=== PATIENT | female | born 1990 ===

== ENCOUNTER 2022-07-01 17:11 | Inpatient (IN) | payer BC, SELFPAY ==
[2022-07-01] VITALS (11 sets, daily range): BP systolic 95–109; BP diastolic 54–64; PULSE 81–125; RESP 12–25; TEMP 36.8–37.9; O2SAT 95–98; BMI 27.2
--- NOTE | 2022-07-01 | DI.RAD.S_ITS ---
PROCEDURE: XR ABDOMEN 1V INDICATIONS: RIGHT STENT PLACEMENT TECHNIQUE: 3 intra-operative images acquired by the Urology service. COMPARISON: None. FINDINGS: Imaging utilized during placement of a right ureteral stent. IMPRESSION: Imaging utilized during placement of a right ureteral stone. Dictated by: Michael Hamlin M.D. on 07/01/2022 at 19:53 Approved by: Michael Hamlin M.D. on 07/01/2022 at 19:54
[2022-07-01] MEDS: LACTATED RINGERS 1,000 ML 42 ML IV ×2 (17:57→19:31)
--- NOTE | 2022-07-01 18:25 | DI.RAD.S_ITS ---
PROCEDURE: XR KUB INDICATIONS: right ureteral stone TECHNIQUE: One view of the abdomen acquired. COMPARISON: [facility], CT, CT ABDOMEN PELVIS WITHOUT CONTRAST, 07/01/2022, 11:01. FINDINGS: Surgical changes and devices: None. Bowel: Bowel gas pattern is normal. Moderately large fecal debris. Soft tissues: The distal right ureteral stone is visualized, above the level of the right acetabulum, measuring approximately 5 x 6 mm. Visualized solid organ contours appear normal in size. Bones: No suspicious bony lesions. IMPRESSION: Distal right ureteral stone measuring approximately 5 x 6 mm. Dictated by: Michael Hamlin M.D. on 07/01/2022 at 18:46 Approved by: Michael Hamlin M.D. on 07/01/2022 at 18:48
--- NOTE | 2022-07-01 18:28 | PM.PREOP ---
Pre-operative Note COVID-19 Criteria for continued procedure: Expected advancement of disease process, Possibility delay results in more complex future surgery or treatment, Continuing or worsening of significant or severe pain, Deterioration of the patient's condition or overall health, Delay expected to result in less-positive ultimate med/surg outcome and Non-surgical alternatives not available or appropriate per current SOC Interval Note History & Physical reviewed/Exam performed by Physician: Yes Changes to H&P: No
--- NOTE | 2022-07-01 18:29 | P.CONS_ITS ---
History of Present Illness Consult details Date Patient Seen: 07/01/22 Time Patient Seen: 18:10 Chief complaint: ABD pain, right kidney ston, possible sepsis Reason for consult: Obstructing 6 mm right ureteral calculus. Requesting provider: Alexi Kinney Narrative: The patient is a 31-year-old para 2 female is experiencing her usual health until the very early hours of this day when experienced nausea, felt febrile, and had onset of acute severe right-sided flank and abdominal pain. She presented to [facility] for evaluation. Initial white blood cell count was 10.5. Urinalysis was nitrite positive and was positive for leukocytes and bacteria. She is not demonstrated any hypotension but blood pressure upon presentation at [facility] is 100/55, pulse 110. Has remained tachycardic at approximately 110 and is febrile, currently 100.2F. She received 1 g of Rocephin earlier today at [facility]. CT KUB identified moderate right hydronephrosis with right perinephric stranding secondary to an obstructing 6 mm right distal ureteral calculus. Hospitalist service at [facility] was contacted for request for transfer due to lack of urologic service providers at [facility], and no bed availability at [facility]. Transfer acceptance has been coordinated. She provides history of having ?frequent UTIs?. Denies previous stone history. Meds Home Medications and Allergies Allergies Allergy/AdvReac Type Severity Reaction Status Date / Time No Known Drug Allergies Allergy Verified 07/01/22 18:12 Review of Systems Review of Systems ROS: Yes All systems reviewed with the patient and are negative except as otherwise documented Exam Vital Signs (past 8 hours): - 07/01/22 17:58 07/01/22 18:15 Temperature 100.2 F H Pulse Rate 111 H 109 H Respiratory Rate 19 20 Blood Pressure 95/61 100/55 L Pulse Oximetry 97 96 Oxygen Delivery Method Room Air Room Air Oxygen Delivery Method Room Air Narrative Exam Narrative: She is a well-developed, well-nourished female in mild distress secondary to right lower quadrant ?cramping? Head/neck sclera clear and pupils are round and equal bilaterally. Chest-equal, and unlabored expansion bilaterally. Heart-normal sinus rhythm. PFSH Social History household members: spouse Assessment & Plan Assessment & Plan narrative: Assessment: 1. Obstructing 6 mm right distal ureteral calculus. 2. UTI/urosepsis. Plan: 1. Discussion and informed consent obtained this evening for urgent cystoscopy and placement of right ureteral stent for internal urinary diversion. 2. Patient will be admitted to the hospitalist service for postoperative observation of clinical course and hemodynamic stability. Time Spent With Patient Critical Care time: I spent a total of [] minutes of critical care time on this patient's care today; this time is exclusive of procedural time.
[2022-07-01] MEDS: CIPROFLOXACIN 400 MG/200 ML PIGGYBACK 200 MG IV (18:46)
--- NOTE | 2022-07-01 19:00 | SUR.OPER ---
Lithotomy on padded OR bed, head on pillow, arms secured on padded arm boards at <90 degrees abduction. Legs secured in padded yellow fins stirrups.
--- NOTE | 2022-07-01 19:33 | PM.OP.1 ---
Operative Date/Time/Diagnoses Date of procedure: 07/01/22 Time of procedure: 19:20 Pre-op diagnosis: 1. Obstructing 6 mm right distal ureteral calculus. 2. UTI/right pyelonephritis. 3. Urosepsis. Post-op diagnosis: same Procedure & Clinicians Procedure: 1. Cystoscopy/right distal ureteral stone manipulation without removal. 2. Cystoscopy/placement right ureteral stent (6 Surinamese by 22-32 cm multi-length). Same procedure as scheduled: Yes Indications: 1. Obstructing 6 mm right distal ureteral calculus. 2. UTI/right pyelonephritis. 3. Urosepsis. Surgeon: Radha James Click Yes if Unassisted: Yes Anesthesia Type: General Operative Notes Findings: 1. Urethra-normal caliber without lesion or obstruction. 2. Bladder-normal ureteral orifices. Grade 2 +cystocele. 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 Normal position of ureteral orifices bilaterally other than malpositioned due to cystocele. 3. Right ureter-the stone is radiopaque and was seen in the same position as that on preoperative imaging. It was highly impacted at the site. Positioning of the stent was very difficult due to high-grade impaction. Following passage of the ureteral guidewire, and then positioning of the ureteral stent there was impressive purulent obstructive efflux. Intraoperative images were taken. Closure Type: not applicable Specimen(s): none sent Applied: other (Six Surinamese by 22-32 cm multi-length stent.) Estimated Blood Loss (mL): 0 Blood products transfused: none Procedure in detail: The patient was positioned supine and was administered general anesthesia. She was then repositioned in semi lithotomy and the lower abdomen, genitalia, and groin were then prepped and draped in sterile fashion. The 22 Surinamese panendoscope was then passed the lower urinary tract with the findings as described above. A 0.35 hybrid guidewire was then selected and advanced into the right collecting system under direct and fluoroscopic guidance with the endoscopic findings as described above. Next, a 6 Surinamese by 22-32 cm multi-length stent was advanced over the hybrid guidewire, again under direct and fluoroscopic guidance. Advancement of the stent proximally was extremely difficult due to the high-grade impaction of the stone. The stent was eventually positioned satisfactorily. NO RETRIEVAL LINE WAS LEFT ATTACHED. The bladder was then drained completely and all instrumentation was removed. The patient was then repositioned supine, was awakened, and then was transferred to a gurney awake and in stable condition. Complications: none Post-operative Condition: stable Disposition: PACU Plan for aftercare: Admit to acute care-hospitalist service.
[2022-07-01] MEDS: ACETAMINOPHEN 325 MG TABLET 650 MG PO (19:45)
[2022-07-01] MEDS: SODIUM CHLORIDE 0.9% 1,000 ML 125 ML IV (21:00)
[2022-07-01] MEDS: PIPERACILLIN/TAZO 4.5 GM in SODIUM CHLORIDE 0.9% 100 ML IV (21:18)
--- NOTE | 2022-07-01 22:01 | P.HP_ITS ---
History of Present Illness History of Present Illness Date Patient Seen: 07/01/22 Time Patient Seen: 18:25 Chief complaint: ABD pain, right kidney ston, possible sepsis Narrative: Nasreen Parker is a 31-year-old female with a history of chronic UTIs, takes no regular medications and no other medical history who woke up yesterday morning with right flank pain and right upper quadrant abdominal pain nausea body aches and chills and felt feverish. Per Dr. James:She presented to [facility] for evaluation.? Initial white blood cell count was 10.5.? Urinalysis was nitrite positive and was positive for leukocytes and bacteria.? She is not demonstrated any hypotension but blood pressure upon presentation at [facility] is 100/55, pulse 110.? Has remained tachycardic at approximately 110 and is? febrile, currently 100.2F.? She received 1 g of Rocephin earlier today at [facility].? CT KUB identified moderate right hydronephrosis with right perinephric stranding secondary to an obstructing 6 mm right distal ureteral calculus.Hospitalist service at [facility] was contacted for request for transfer due to lack of urologic service providers at [facility], and no bed availability at [facility].? Transfer acceptanced by hospitalist service. 07/01/20221919 Dr. James urologist took the patient to the OR for UTI, pyelonephritis, urosepsis, for cystoscopy and right ureteral stent placement. Hospitalist admit exam was completed after the patient returned to the floor post surgery. The patient states that she has continued mild right lower quadrant ache and right flank ache 1/10 no nausea mild headache, she has been up and emptied her bladder, complains of dysuria, urgency and frequency symptoms. Denies any hematuria, suprapubic pain, nausea, vomiting, chest pain, shortness of breath, fever, body aches, or chills, positive decreased appetite, last bowel movement was 4 days ago, denies blood in her stool, feels constipated, patient denies any history of kidney stones. Takes no regular medications, no other medical history, denies any recent illness, injury, or trauma. Patient's vital signs postoperatively temp 100.2?, BP 95/56, HR 103, R 25, O2 saturation 97% on room air.. Upon admit exam patient is afebrile temp 98.9?, BP 109/62, HR 97 RR 22, O2 saturation 96% on room air patient is resting comfortably in no distress at this time. Patient admitted for hospitalist management for postoperative UTI, pyelonephritis, and urosepsis. Patient History Medical History Chronic lower urinary tract infection Family & Social History Family History Mother Cancer Father Diabetes mellitus Social History: household members spouse, patient has 2 children and is a worker for [employer]. Prior Living Arrangements House Tobacco & Substance use: Smoking Status patient smoked for approximately 5 years and quit 10 years ago. alcohol intake current alcohol intake frequency a few times a week Substance Use Type does not use Meds Home Medications and Allergies Home Medications Medication Instructions Recorded Confirmed Type No Known Home Medications 07/01/22 07/01/22 History Allergies Allergy/AdvReac Type Severity Reaction Status Date / Time No Known Drug Allergies Allergy Verified 07/01/22 18:12 Review of Systems Review of Systems Narrative: All 12 point systems reviewed with the patient and are negative except otherwise documented. Exam Vital Signs (past 8 hours): - 07/01/22 17:58 07/01/22 18:15 07/01/22 19:23 Temperature 100.2 F H 100.2 F H Pulse Rate 111 H 109 H 125 H Respiratory Rate 19 20 23 Blood Pressure 95/61 100/55 L 107/61 Pulse Oximetry 97 96 98 Oxygen Delivery Method Room Air Room Air Room Air Oxygen Flow Rate 07/01/22 19:27 07/01/22 19:32 07/01/22 19:42 Temperature Pulse Rate 108 H 103 H 99 H Respiratory Rate 24 25 H 24 Blood Pressure 96/55 L 95/56 L 106/62 Pulse Oximetry 98 97 95 Oxygen Delivery Method Room Air Room Air Room Air Oxygen Flow Rate 07/01/22 19:45 07/01/22 19:47 07/01/22 19:52 Temperature 100.2 F H Pulse Rate 94 H 95 H Respiratory Rate 22 21 Blood Pressure 107/59 L 104/64 Pulse Oximetry 95 96 Oxygen Delivery Method Room Air Room Air Oxygen Flow Rate 07/01/22 20:14 Temperature 98.9 F Pulse Rate 97 H Respiratory Rate 22 Blood Pressure 109/62 Pulse Oximetry 96 Oxygen Delivery Method Oxygen Flow Rate 0 Oxygen Delivery Method Room Air Oxygen Flow Rate 0 Narrative Exam Narrative: General: Patient is a well-developed, well-nourished female in no distress at this time. HEENT: Normocephalic, atraumatic, extraocular muscles intact, oral pharynx is clear and mucous membranes are moist. Neck is supple and symmetric, trachea is midline, no adenopathy, no thyroid enlargement, nontender, no masses palpated. Negative for JVD Chest: Normal AP diameter and contour without kyphoscoliosis, no nasal flaring, retractions, or tachypneic labored Lungs: Auscultation of all lung silver are clear without adventitious sounds, wheezes, rhonchi, or rales. Cardio: S1 & S2 with regular rate and rhythm without murmur, rubs, or gallops, no carotid bruit, no cardiac pulsations present. Abdomen: Soft mild right quad diffuse tenderness s/p, Bowel sounds are absent in all 4 quadrants without guarding or rebound, positive right mild CVA tenderness. Musculoskeletal: Muscle strength and tone are equal within normal limits, no deformity, crepitus, effusions, cyanosis, clubbing or edema present. Full range of motion intact radial and pedal pulses are normal. Skin: Warm dry and intact without rashes, ulcerations or petechiae. Neuro: Alert and orientated x3, strength is +5/5 in all extremities, sensation to touch intact, no gross deficits noted of cranial nerves. Psych: Patient has a well-kept appearance, appropriate affect, mental status attitude thought context and judgment are appropriate for age. Assessment & Plan Assessment & Plan narrative: Nasreen Parker is a 31-year-old female only a history of chronic UTIs who was transferred from [facility] to [facility] to undergo cystoscopy with right ureteral stent placement by Dr. James urology after developing a UTI pyelonephritis urosepsis due to an obstructing 6 mm right distal ureteral calculus. Patient required admittance and medical management status post due to the serous risk of significant deterioration within the next 24 hours. 1. Right ureteral calculus, obstructing, with moderate right hydronephrosis, acute, present on admission- Resolved - Status Post OP -managed by Dr. James cystoscopy with right ureteral stent placement 07/01/2022 2. Sepsis (Urosepsis), secondary to UTI/pyelonephritis as a result of obstructing renal calculi, acute, present on admission-resolving -initial presenting vitals temp 100.2?, BP 95/56, HR 110, RR 25, WBC 10.5, urinalysis positive for nitrates, leukocytes and bacteria.-Per Dr. James's H&P documentation -patient has stabilized: Patient is afebrile, tachycardia and tachypnea resolved. -ordered stat CMP and CBC -blood cultures ordered, unclear if patient's urine was cultured at [place], ordered urine culture-will have am RN retrieve records from [place] in [place]. -Given 1 gram Rocephin at [facility] -For coverage of Gram-negative, Enterococcus, and Staphylococcus changed patient to Zosyn q.8 hours -NS at 125 cc HR- rehydration -Monitor for decompensation, septic shock -orthostatics q.4 hours while awake -advance diet to regular as tolerated -antiemetics and pain management -Dr. James noted a possible Candidiasis infection observed during surgical procedure- Ordered fluconazole 150 mg p.o. daily for coverage. -Patient will need to be discharged home on 3 weeks oral antibiotics Cipro 500mg. -I also recommend that she have a script for 2 doses of fluconazole 150 mg-to be initiated at the completion of oral antibiotics. Code status:Full Surrogate decision maker: Arturo Parker Spouse COVID PCR:Negative DVT/VTE prophylaxis:Lovenox held due to surgery, SCD's only Disposition: Patient is admitted under inpatient status as she required surgical intervention which could only be provided within the hospital setting, and the patient need to be monitored postoperatively as she is at risk of serious significant deterioration within 24 hours of surgery due to sepsis. I have utilized all available immediate resources to obtain, update, or review the patient's current medications. I confirmed that the patient's advanced care plan is present, Code status is documented and/or surrogate decision maker is listed in the patient's medical record. Time Spent With Patient Critical Care time: I spent a total of [] minutes of critical care time on this patient's care today; this time is exclusive of procedural time.
[2022-07-01] MEDS: SENNOSIDES 8.6 MG TABLET PO (22:49)
[2022-07-01] MEDS: KETOROLAC 30 MG/ML VIAL IV (22:49)
[2022-07-02] VITALS (7 sets, daily range): BP systolic 97–117; BP diastolic 54–70; PULSE 64–78; RESP 12–16; TEMP 36.5–37; O2SAT 96–97
[2022-07-02] MEDS: PIPERACILLIN/TAZO 3.375 GM in SODIUM CHLORIDE 0.9% 100 ML IV ×2 (01:20→08:51)
[2022-07-02] MEDS: KETOROLAC 30 MG/ML VIAL IV ×2 (05:12→11:32)
[2022-07-02 05:58] LABS: Add Manual Diff / Slide Review NO; Basophils Absolute Auto 0 /uL (0-100); Basophils Percent Auto 0.1 % (0-2); Eosinophils Absolute Auto 0 /uL (0-450); Eosinophils Percent Auto 0.1 % (2-4); Hematocrit 31.4 % (36-46); Hemoglobin 10.5 g/dL (12.0-16.0); Lymphocytes Absolute Auto 1200 /uL (1100-4500); Lymphocytes Percent Auto 4.8 % (25-40); Mean Corpuscular HGB Conc 33.3 % (30-36); Mean Corpuscular Hemoglobin 29.8 PG (26-34); Mean Corpuscular Volume 89.5 fL (80-100); Monocytes Absolute Auto 1400 /uL (0-900); Monocytes Percent Auto 5.9 % (3-14); Neutrophils Absolute Auto 21700 /uL (1500-7000); Neutrophils Percent Auto 89.1 % (50-75); Platelet Count 134 X10^3/uL (150-400); Red Blood Cell Count 3.51 X10^6/uL (4.0-5.2); Red Cell Distribution Width 12.2 % (11.6-14.8); White Blood Cell Count 24.3 X10^3/uL (4.5-11.0)
[2022-07-02 06:26] LABS: Alanine Aminotransferase 15 IU/L (<35); Albumin 3.4 g/dL (3.5-5.0); Albumin Globulin Ratio 1.2 (1.0-2.8); Alkaline Phosphatase 58 U/L (38-126); Aspartate Aminotransferase 27 IU/L (14-36); BUN Creatinine Ratio 18.1 (6-22); Bilirubin Total 0.5 mg/dL (0.2-1.3); Blood Urea Nitrogen 13 mg/dL (7-17); Calcium 8.6 mg/dL (8.4-10.2); Carbon Dioxide 23 mmol/L (22-32); Chloride 108 mmol/L (98-107); Estimated Glomerular Filt Rate > 60 mL/min (>60); Globulin 2.8 g/dL (1.7-4.1); Glucose 143 mg/dL (70-100); HEMOLYSIS < 15 (0-50); Potassium 3.9 mmol/L (3.4-5.1); Sodium 137 mmol/L (137-145); Total Protein 6.2 g/dL (6.3-8.2)
--- NOTE | 2022-07-02 07:56 | P.PN_ITS ---
Exam Vital Signs (past 8 hours): - 07/02/22 00:00 07/02/22 01:05 07/02/22 05:42 Temperature 98.6 F 98.6 F 98.5 F Pulse Rate 77 78 64 Respiratory Rate 16 12 12 Blood Pressure 101/56 L 102/54 L 97/55 L Pulse Oximetry 96 96 96 Oxygen Flow Rate 0 0 0 Oxygen Delivery Method Room Air Oxygen Flow Rate 0 Narrative Exam Narrative: General: Patient is a well-developed, well-nourished female in no distress at this time. HEENT: Normocephalic, atraumatic, extraocular muscles intact, oral pharynx is clear and mucous membranes are moist. Neck is supple and symmetric, trachea is midline, no adenopathy, no thyroid enlargement, nontender, no masses palpated. Negative for JVD Chest: Normal AP diameter and contour without kyphoscoliosis, no nasal flaring, retractions, or tachypneic labored Lungs: Auscultation of all lung silver are clear without adventitious sounds, wheezes, rhonchi, or rales. Cardio: S1 & S2 with regular rate and rhythm without murmur, rubs, or gallops, no carotid bruit, no cardiac pulsations present. Abdomen: Soft mild right quad diffuse tenderness s/p, Bowel sounds are absent in all 4 quadrants without guarding or rebound, positive right mild CVA tenderness. Musculoskeletal: Muscle strength and tone are equal within normal limits, no deformity, crepitus, effusions, cyanosis, clubbing or edema present. Full range of motion intact radial and pedal pulses are normal. Skin: Warm dry and intact without rashes, ulcerations or petechiae. Neuro: Alert and orientated x3, strength is +5/5 in all extremities, sensation to touch intact, no gross deficits noted of cranial nerves. Psych: Patient has a well-kept appearance, appropriate affect, mental status attitude thought context and judgment are appropriate for age. Objective Labs Result Diagrams: 07/02/22 05:30 07/02/22 05:30 Labs: Laboratory Results - last 24 hr 07/02/22 07/02/22 07/02/22 05:30 05:30 05:30 WBC 24.3 H RBC 3.51 L Hgb 10.5 L Hct 31.4 L MCV 89.5 MCH 29.8 MCHC 33.3 RDW 12.2 Plt Count 134 L Neut % (Auto) 89.1 H Lymph % (Auto) 4.8 L [place] % (Auto) 5.9 Eos % (Auto) 0.1 L Baso % (Auto) 0.1 Neut # (Auto) 28696 H Lymph # (Auto) 1200 [place] # (Auto) 1400 H Eos # (Auto) 0 Baso # (Auto) 0 Sodium 137 Cancelled Potassium 3.9 Cancelled Chloride 108 H Cancelled Carbon Dioxide 23 Cancelled BUN 13 Cancelled Creatinine 0.72 Cancelled Estimated GFR > 60 Cancelled BUN/Creatinine Ratio 18.1 Cancelled Glucose 143 H Cancelled Calcium 8.6 Cancelled Total Bilirubin 0.5 AST 27 ALT 15 Alkaline Phosphatase 58 Total Protein 6.2 L Albumin 3.4 L Globulin 2.8 Albumin/Globulin Ratio 1.2 PFSH Medical History Chronic lower urinary tract infection Family History Mother Cancer Father Diabetes mellitus Social History household members: spouse Smoking Status: Never smoker alcohol intake: current Assessment & Plan Assessment & Plan narrative: Nasreen Parker is a 31-year-old female only a history of chronic UTIs who was transferred from [facility] to [facility] to undergo cystoscopy with right ureteral stent placement by Dr. James urology after developing a UTI pyelonephritis urosepsis due to an obstructing 6 mm right distal ureteral calculus. Patient required admittance and medical management status post due to the serous risk of significant deterioration within the next 24 hours. 1. Right ureteral calculus, obstructing, with moderate right hydronephrosis, acute, present on admission- Resolved - Status Post OP -managed by Dr. James cystoscopy with right ureteral stent placement 07/01/2022 2. Sepsis (Urosepsis), secondary to UTI/pyelonephritis as a result of obstructing renal calculi, acute, present on admission-resolving -initial presenting vitals temp 100.2?, BP 95/56, HR 110, RR 25, WBC 10.5, urinalysis positive for nitrates, leukocytes and bacteria.-Per Dr. James's H&P documentation -patient has stabilized: Patient is afebrile, tachycardia and tachypnea resolved. -ordered stat CMP and CBC -blood cultures ordered, unclear if patient's urine was cultured at [place], ordered urine culture-will have am RN retrieve records from [place] in [place]. -Given 1 gram Rocephin at [facility] -For coverage of Gram-negative, Enterococcus, and Staphylococcus changed patient to Zosyn q.8 hours -NS at 125 cc HR- rehydration -Monitor for decompensation, septic shock -orthostatics q.4 hours while awake -advance diet to regular as tolerated -antiemetics and pain management -Dr. James noted a possible Candidiasis infection observed during surgical procedure- Ordered fluconazole 150 mg p.o. daily for coverage. -Patient will need to be discharged home on 3 weeks oral antibiotics Cipro 500mg. -I also recommend that she have a script for 2 doses of fluconazole 150 mg-to be initiated at the completion of oral antibiotics. Code status: Full Surrogate decision maker: Arturo Parker Spouse COVID PCR: Negative DVT/VTE prophylaxis: Lovenox held due to surgery, SCD's only Time Spent With Patient Critical Care time: I spent a total of [] minutes of critical care time on this patient's care today; this time is exclusive of procedural time.
[2022-07-02] MEDS: SODIUM CHLORIDE 0.9% 1,000 ML 125 ML IV (08:50)
[2022-07-02] MEDS: FLUCONAZOLE 100 MG TABLET 150 MG PO (08:52)
[2022-07-02 13:47] LABS: Add Manual Diff / Slide Review NO; Basophils Absolute Auto 0 /uL (0-100); Basophils Percent Auto 0.1 % (0-2); Eosinophils Absolute Auto 0 /uL (0-450); Eosinophils Percent Auto 0.1 % (2-4); Hematocrit 30.4 % (36-46); Lymphocytes Absolute Auto 1500 /uL (1100-4500); Lymphocytes Percent Auto 6.7 % (25-40); Mean Corpuscular Hemoglobin 29.9 PG (26-34); Mean Corpuscular Volume 90.5 fL (80-100); Monocytes Absolute Auto 900 /uL (0-900); Monocytes Percent Auto 4.1 % (3-14); Neutrophils Absolute Auto 19700 /uL (1500-7000); Platelet Count 126 X10^3/uL (150-400); Red Blood Cell Count 3.36 X10^6/uL (4.0-5.2); Red Cell Distribution Width 11.9 % (11.6-14.8); White Blood Cell Count 22.1 X10^3/uL (4.5-11.0)
--- NOTE | 2022-07-02 14:03 | CM.DANOTE ---
Patient is a 31 yo female who was admitted on 07/01/22 for Abd Pain. Pt has [employer] for insurance and her PCP is not listed and out of town. EMR was reviewed. Per MD, pt with hx of chronic UTIs and admitted from [facility] for Urologist needs and was taken to OR for pyelonephritis, urosepsis, cystoscopy with stent placement. Per MD, awaiting blood cultures and white count before likely d/c home on oral abx and outpt f/u. SW met briefly bedside with pt and explained role and pt confirms she lives in [place] with her spouse and 2 kids and is independent with ADL's at baseline and drives. Pt is employed at baseline and denies any hx of HH or SNF. Pt preference is home with her family and does not anticipate any needs at d/c and spouse can likely provide transport pending time and day of discharge. Plan: SW to follow closely for plan of d/c to home with family assist and any further identified discharge planning needs. MOUNIKA Barraza Discharge Planning/Care Management CM Discharge Assessment Start: 07/02/22 14:01 Freq: Status: Active Protocol: Document 07/02/22 14:01 (Rec: 07/02/22 14:03 [id number]) Discharge Planning Assessment Assigned Cable Tv Installer MOUNIKA Villalobos DPOA/Assigned Designee Name informally spouse Arturo Contact Information [phone] Advance Directives? No Advance Directives on File No History Provided By Patient,Medical Record Has Patient been admitted in last 30 No days? Prior Living Arrangements House Household Members spouse,children Comment Lives at home in [place] with spouse and 2 kids Type of transporation used prior to Drives own vehicle admit Independent with ADL's Yes Is patient alert and oriented? Yes Caregiver for Another Yes: 2 kids at home Barriers to Discharge No Discharge Plan Home Transportation Arrangement Spouse likely to provide transport at d/c Referrals Initiated None needed Review Status In Process Please Provide Date Initial DC 07/02/22 Assessment Was Performed Next Review Type Continued Stay Review
[2022-07-02] MEDS: SENNOSIDES 8.6 MG TABLET PO (15:09)
--- NOTE | 2022-07-02 16:32 | P.DS_ITS ---
History of Present Illness History of Present Illness Date Patient Seen: 07/02/22 Time Patient Seen: 16:33 Chief complaint: ABD pain, right kidney ston, possible sepsis Narrative: Nasreen Parker is a 31-year-old female with a history of chronic UTIs, takes no regular medications and no other medical history who woke up yesterday morning with right flank pain and right upper quadrant abdominal pain nausea body aches and chills and felt feverish. Per Dr. James:She presented to [facility] for evaluation.? Initial white blood cell count was 10.5.? Urinalysis was nitrite positive and was positive for leukocytes and bacteria.? She is not demonstrated any hypotension but blood pressure upon presentation at [facility] is 100/55, pulse 110.? Has remained tachycardic at approximately 110 and is? febrile, currently 100.2F.? She received 1 g of Rocephin earlier today at [facility].? CT KUB identified moderate right hydronephrosis with right perinephric stranding secondary to an obstructing 6 mm right distal ureteral calculus.Hospitalist service at [facility] was contacted for request for transfer due to lack of urologic service providers at [facility], and no bed availability at [facility].? Transfer acceptanced by hospitalist service. 07/01/20221919 Dr. James urologist took the patient to the OR for UTI, pyelonephritis, urosepsis, for cystoscopy and right ureteral stent placement. Hospitalist admit exam was completed after the patient returned to the floor post surgery.? The patient states that she has continued mild right lower quadrant ache and right flank ache 1/10 no nausea mild headache, she has been up and emptied her bladder, complains of dysuria, urgency and frequency symptoms.? Denies any hematuria, suprapubic pain, nausea, vomiting, chest pain, shortness of breath, fever, body aches, or chills, positive decreased appetite, last bowel movement was 4 days ago, denies blood in her stool, feels constipated, patient denies any history of kidney stones.? Takes no regular medications, no other medical history, denies any recent illness, injury, or trauma.? Patient's vital signs postoperatively temp 100.2?, BP 95/56, HR 103, R 25, O2 saturation 97% on room air..? Upon admit exam patient is afebrile temp 98.9?, BP 109/62, HR 97 RR 22, O2 saturation 96% on room air patient is resting comfortably in no distress at this time.? Patient admitted for hospitalist management for postoperative UTI, pyelonephritis, and urosepsis. Discharge Providers Provider Date of admission: 07/01/22 17:11 Discharge Date: 07/02/22 Discharge provider: Alexi Kinney DO Summary Hospital Course Discharge Diagnosis: 1. Right ureteral calculus, obstructing, with? moderate right hydronephrosis, acute, present on admission- Resolved 2. Sepsis (Urosepsis), secondary to UTI/pyelonephritis as a result of obstru cting renal calculi, acute, present on admission-resolving Hospital Course: [facility] emergent ureteral stent placement due to 6mm impacted right kidney stone at distal ureter. Had fever, tachycardia and WBC 24 on admission and received IV rocephin. Dr. James urology placed stent with copious purulent drainage. Blood cultures at [place] negative at 24 hours and urine cultures growing GNR's. She did well following the procedure and fever and tachycardia resolved. She was able to eat and drink. She received a dose of fluconazole for possible vaginal yeast infection. Discharged home on cipro to follow-up with Dr. James in clinic in 3 weeks for stone and stent removal. Time Spent with Patient Time spent: Greater than 30 minutes Exam Vital Signs (past 8 hours): - 07/02/22 11:00 07/02/22 12:00 Temperature 97.7 F Pulse Rate 68 Pulse Rate [Orthostatic Lying] 68 Pulse Rate [Orthostatic Sitting] 69 Pulse Rate [Orthostatic Standing] 65 Respiratory Rate 15 Blood Pressure 113/64 Blood Pressure [Orthostatic Lying] 110/59 L Blood Pressure [Orthostatic Sitting] 111/60 Blood Pressure [Orthostatic Standing] 109/58 L Pulse Oximetry 97 Oxygen Flow Rate 0 Oxygen Delivery Method Room Air Oxygen Flow Rate 0 Narrative Exam Narrative: General: Patient is a well-developed, well-nourished female in no distress at this time. HEENT: Normocephalic, atraumatic, extraocular muscles intact, oral pharynx is clear and mucous membranes are moist. Neck is supple and symmetric, trachea is midline, no adenopathy, no thyroid enlargement, nontender, no masses palpated. Negative for JVD Chest: Normal AP diameter and contour without kyphoscoliosis, no nasal flaring, retractions, or tachypneic labored Lungs: Auscultation of all lung silver are clear without adventitious sounds, wheezes, rhonchi, or rales. Cardio: S1 & S2 with regular rate and rhythm without murmur, rubs, or gallops, no carotid bruit, no cardiac pulsations present. Abdomen: Soft mild right quad diffuse tenderness s/p, Bowel sounds are absent in all 4 quadrants without guarding or rebound, positive right mild CVA tenderness. Musculoskeletal: Muscle strength and tone are equal within normal limits, no deformity, crepitus, effusions, cyanosis, clubbing or edema present. Full range of motion intact radial and pedal pulses are normal. Skin: Warm dry and intact without rashes, ulcerations or petechiae. Neuro: Alert and orientated x3, strength is +5/5 in all extremities, sensation to touch intact, no gross deficits noted of cranial nerves. Psych: Patient has a well-kept appearance, appropriate affect, mental status attitude thought context and judgment are appropriate for age. Objective Labs Result Diagrams: 07/02/22 09:15 07/02/22 05:30 Labs: Laboratory Results - last 24 hr 07/02/22 07/02/22 07/02/22 05:30 05:30 05:30 WBC 24.3 H RBC 3.51 L Hgb 10.5 L Hct 31.4 L MCV 89.5 MCH 29.8 MCHC 33.3 RDW 12.2 Plt Count 134 L Neut % (Auto) 89.1 H Lymph % (Auto) 4.8 L [place] % (Auto) 5.9 Eos % (Auto) 0.1 L Baso % (Auto) 0.1 Neut # (Auto) 52331 H Lymph # (Auto) 1200 [place] # (Auto) 1400 H Eos # (Auto) 0 Baso # (Auto) 0 Sodium 137 Cancelled Potassium 3.9 Cancelled Chloride 108 H Cancelled Carbon Dioxide 23 Cancelled BUN 13 Cancelled Creatinine 0.72 Cancelled Estimated GFR > 60 Cancelled BUN/Creatinine Ratio 18.1 Cancelled Glucose 143 H Cancelled Calcium 8.6 Cancelled Total Bilirubin 0.5 AST 27 ALT 15 Alkaline Phosphatase 58 Total Protein 6.2 L Albumin 3.4 L Globulin 2.8 Albumin/Globulin Ratio 1.2 07/02/22 09:15 WBC 22.1 H RBC 3.36 L Hgb 10.0 L Hct 30.4 L MCV 90.5 MCH 29.9 MCHC 33.0 RDW 11.9 Plt Count 126 L Neut % (Auto) 89.0 H Lymph % (Auto) 6.7 L [place] % (Auto) 4.1 Eos % (Auto) 0.1 L Baso % (Auto) 0.1 Neut # (Auto) 26513 H Lymph # (Auto) 1500 [place] # (Auto) 900 Eos # (Auto) 0 Baso # (Auto) 0 Sodium Potassium Chloride Carbon Dioxide BUN Creatinine Estimated GFR BUN/Creatinine Ratio Glucose Calcium Total Bilirubin AST ALT Alkaline Phosphatase Total Protein Albumin Globulin Albumin/Globulin Ratio [facility] Medical History Chronic lower urinary tract infection Family History Mother Cancer Father Diabetes mellitus Social History household members: spouse and children Smoking Status: Never smoker alcohol intake: current Discharge Plan Discharge Plan Patient Disposition: Home Provider Discharge Comment: You were found to have a 6mm kidney stone stuck in the right side causing a urinary tract infection. You had a stent placed by urology which drained out the infection. You'll need to be on an antibiotic for 3 weeks and follow-up with Dr. James in clinic in 3 weeks. I've also sent a dose of fluconazole in case you feel you are developing a yeast infection while on the antibiotic. Discharge orders & Medications Prescriptions: New fluconazole 150 mg tablet 150 mg PO PRN PRN (Reason: for vaginal yeast infec) Qty: 1 0RF ciprofloxacin HCl [Cipro] 500 mg tablet 500 mg PO BID 21 Days Qty: 42 0RF Rx Instructions: start on 07/03 Visit Report/Discharge Packet Instructions: DI for Kidney Stones
== END 2022-07-02 17:30 | disposition home or self-care (01) | DRG 872 ==
PROVIDERS: Nurse Practitioner Family; Specialist; Admitting Provider Student in an Organized Health Care Education/Training Program; Referring Provider Student in an Organized Health Care Education/Training Program; Visit Provider Student in an Organized Health Care Education/Training Program
PROC: 0T9680Z Drainage of Right Ureter with Drainage Device, Via Natural or Artificial Opening Endoscopic (ICD-10-PCS; principal; 2022-07-01 18:00)
DX: A41.9 Sepsis, unspecified organism (principal); N13.6 Pyonephrosis; I95.9 Hypotension, unspecified; R65.20 Severe sepsis without septic shock; Z20.822 Contact with and (suspected) exposure to COVID-19; Z87.891 Personal history of nicotine dependence
CPT/HCPCS: 36415; 74018; 76000; 80053; 85025; 87040; J0744; J1100; J1885; J2250; J2405; J2543; J2704; J3010

== ENCOUNTER → 2022-07-24 12:51 | Outpatient (CLI) | payer BC, SELFPAY ==
[2022-07-03 11:57] VITALS: BMI 27.2
[2022-07-24 13:20] LABS: Bilirubin Urine UA NEGATIVE (NEGATIVE); Color Urine UA YELLOW; Glucose Urine UA NEGATIVE (Negative); Ketones Urine UA NEGATIVE (NEGATIVE); Leukocyte Esterase Urine UA 2+ (NEGATIVE); Nitrite Urine UA NEGATIVE (Negative); Occult Blood Urine UA 2+ (Negative); Protein Urine UA TRACE (Negative); Specific Gravity Urine UA <=1.005 (1.000-1.035); Urobilinogen Urine UA 0.2 E.U./dL (0.2)
[2022-07-24 13:24] LABS: Appearance Urine UA Slightly Cloudy
[2022-07-24 13:34] LABS: Amorphous Sediment Urine 1+; Bacteria Urine Occasional (0-1); Culture Indicated Urine Specimen Cultured; RBC Urine 5-10/HPF (0-5/HPF); Squamous Epithelial Cell Urine 5-10 /HPF (0-5/HPF); WBC Urine 5-10/HPF (0-5/HPF)
--- NOTE | 2022-07-24 13:57 | DI.RAD.S_ITS ---
PROCEDURE: XR KUB INDICATIONS: Right ureteral calculus TECHNIQUE: One view of the abdomen acquired. COMPARISON: [facility], , XR KUB, 07/01/2022, 18:34. FINDINGS: Surgical changes and devices: Right ureteral stent in appropriate position. Bowel: Bowel gas pattern is normal. Soft tissues: No radiopaque calculi is seen in the field of view. Bones: No suspicious bony lesions. IMPRESSION: No radiopaque calculus is seen radiographically. Consider further evaluation with cross-sectional imaging if there is sufficient clinical concern. Appropriate positioning of the right ureteral stent. Dictated by: Bassem Humphreys M.D. on 07/24/2022 at 16:09 Approved by: Bassem Humphreys M.D. on 07/24/2022 at 16:10
== END ==
PROVIDERS: Referring Provider Specialist; Visit Provider Specialist
DX: N12 Tubulo-interstitial nephritis, not specified as acute or chronic (principal); N20.1 Calculus of ureter; N39.0 Urinary tract infection, site not specified; Z96.0 Presence of urogenital implants
CPT/HCPCS: 74018; 81001; 81002; 87086; 99215

== ENCOUNTER 2022-08-07 06:42 | Day surgery (SDC) | payer BC, SELFPAY ==
[2022-07-03 11:57] VITALS: BMI 27.2
[2022-08-02 08:00] VITALS: BMI 26.5
[2022-08-07] VITALS (7 sets, daily range): BP systolic 99–109; BP diastolic 65–72; PULSE 55–67; RESP 12–17; TEMP 36.4–37.1; O2SAT 56–100; BMI 26.5
--- NOTE | 2022-08-07 07:00 | PM.PREOP ---
Pre-operative Note COVID-19 Criteria for continued procedure: Expected advancement of disease process, Possibility delay results in more complex future surgery or treatment, Deterioration of the patient's condition or overall health, Delay expected to result in less-positive ultimate med/surg outcome and Non-surgical alternatives not available or appropriate per current SOC Interval Note History & Physical reviewed/Exam performed by Physician: Yes Changes to H&P: No
[2022-08-07] MEDS: LACTATED RINGERS 1,000 ML 42 ML IV (07:15)
[2022-08-07] MEDS: FAMOTIDINE 20 MG/2 ML VIAL IV (07:38)
[2022-08-07 07:43] LABS: COVID19 -Nasal RAPID Negative (Negative)
[2022-08-07] MEDS: CEFAZOLIN 2 GM/100 ML PREMIX 100 ML IV (07:50)
[2022-08-07] MEDS: IOPAMIDOL 50 ML VIAL 6 ML INTRAURETH (08:20)
--- NOTE | 2022-08-07 08:26 | SUR.OPER ---
Lithotomy on padded OR bed, head on pillow, arms secured on padded arm boards at <90 degrees abduction. Legs secured in padded yellow fins stirrups.
--- NOTE | 2022-08-07 08:44 | PM.OP.1 ---
Operative Date/Time/Diagnoses Date of procedure: 08/07/22 Time of procedure: 08:35 Pre-op diagnosis: 1. 6 mm right distal ureteral calculus. 2. History of right pyelonephritis/urosepsis. 3. Retained right ureteral stent. Procedure & Clinicians Procedure: 1. Cystoscopy/right ureteral stent removal. 2. Cystoscopy/right retrograde pyelogram. 3. Cystoscopy/right intrarenal ureteroscopy. Same procedure as scheduled: No (Interval passage or disruption and passage of index calculus.) Indications: 1. 6 mm right distal ureteral calculus. 2. History of right pyelonephritis/urosepsis. 3. History of recurrent UTI. Surgeon: Radha James Click Yes if Unassisted: Yes Anesthesia Type: General Operative Notes Findings: 1. Urethra-normal caliber and position. 2. Bladder-normal urothelium throughout with the exception of the vicinity of the right ureteral orifice with expected mild erythema and bullous edema. 3. Right ureter-normal caliber. No evidence of stone or lesion. 4. Right kidney-mild caliectasis. Mild patchy foreign body reaction. No stone present. Closure Type: not applicable Specimen(s): none sent Estimated Blood Loss (mL): 0 Blood products transfused: none Procedure in detail: The patient was positioned supine was administered general anesthesia. She was then repositioned in semi lithotomy and the lower abdomen, groin, and genitalia were prepped and draped in sterile fashion. The 22 Portuguese panendoscope was then passed the lower urinary tract. A foreign body grasper was then utilized to engage the distal end of the stent. The scope was then withdrawn with the distal end of the ureteral stent extending beyond the urethral meatus. A 0.35 glide wire was then advanced through the lumen of the stent advanced proximally under direct and fluoroscopic guidance. The stent was then backloaded off the guidewire and discarded. The semi rigid ureteral scope was then advanced lower urinary tract and then into the distal right ureter and advanced proximally under careful visualization to the level of the intrarenal collecting system with the findings as described above. The semi rigid ureteral scope was then removed. A dual-lumen ureteral access sheath was then advanced over the Glidewire. Through the accessory port a 0.35 hybrid motion guidewire was advanced under direct and fluoroscopic guidance. The dual-lumen ureteral access sheath was then removed. The Glidewire was secured to the surgical drape. The flexible ureteral scope was then advanced over the hybrid wire and advanced under direct and fluoroscopic guidance. Retrograde pyelogram was performed to define the intrarenal collecting system. No filling defects were noted. Meticulous examination of each calyx beginning at the superior pole and continuing systematically to the lower pole calyceal system was performed twice without finding of ureteral calculus. The flexible ureteral scope was then withdrawn and removed. The panendoscope was inserted back into the bladder with the obturator in place in the bladder contents drained. The patient was then repositioned in supine, awakened, transferred to [facility] and then transported to recovery in stable condition. Complications: none Post-operative Condition: stable Disposition: PACU Plan for aftercare: Discharge home.
== END 2022-08-07 09:40 | disposition home or self-care (01) ==
PROVIDERS: Referring Provider Specialist; Visit Provider Specialist
PROC: (CPT 52351; principal; 2022-08-07 07:45)
DX: N20.1 Calculus of ureter (principal); Z96.0 Presence of urogenital implants; Z87.440 Personal history of urinary (tract) infections; Z20.822 Contact with and (suspected) exposure to COVID-19
CPT/HCPCS: 52351; 76000; 81025; 82962; 87635; C1771; C9803; J0690; J2250; J3010